=== PATIENT | male | born 1985 | race Caucasian/White ===

== ENCOUNTER 2018-09-18 08:15 | Inpatient (IN) | payer OTHER ==
[2018-09-18 08:32] VITALS: BMI 24.8
--- NOTE | 2018-09-18 08:49 | HP ---
COWS - Scale Resting Pulse: 1= RI 81-100 Sweatin= Chills/Flushing Restless Observation: 0= Sits Still Pupil Size: 2= Moderately Dilated Bone or Joint Aches: 4=Acute Joint/Muscle Pain Runny Nose/ Eye Tearin= Nasal Congestion GI Upset > 30mins: 2= Nausea/Diarrhea Tremor Observation: 0= None Yawning Observation: 0= None Anxiety or Irritability: 2=Irritable/Anxious Goose Flesh Skin: 0=Smooth Skin COWS Score: 13 CIWA Score Nausea/Vomitin Muscle Tremors: None Anxiety: 3 Agitation: 1-Slight > Activity Paroxysmal Sweats: 2 Orientation: 0-Oriented Tacttile Disturbances: 1-Very Mild Itch/Numbness Auditory Disturbances: 2-Mild Harshness/Frighten Visual Disturbances: 2-Mild Sensitivity Headache: 3-Moderate CIWA-Ar Total Score: 17 - Admission Criteria OASAS Guidelines: Admission for Medically Managed Detox: Requires at least one of the followin. CIWA greater than 12 2. Seizures within the past 24 hours 3. Delirium tremens within the past 24 hours 4. Hallucinations within the past 24 hours 5. Acute intervention needed for co occurring medical disorder 6. Acute intervention needed for co occurring psychiatric disorder 7. Severe withdrawal that cannot be handled at a lower level of care (continued vomiting, continued diarrhea, abnormal vital signs) requiring intravenous medication and/or fluids 8. Admission ROS [facility] Allergies/Adverse Reactions: Allergies Allergy/AdvReac Type Severity Reaction Status Date / Time ketorolac [From Toradol] Allergy Verified 09/18/18 11:07 nickel Allergy Verified 09/18/18 11:07 History of Present Illness: pt here requesting detox from opiate and etoh use , reports first age of use 5 years ago , started w/ percocet rx for LBP 2/2 work -related injury , left ankle frx , left knee sprain , left hip frx , casted no surgery ( fall down stairs ) , then started cannabis, then cocaine, crack cocaine, then heroin , then " pretty much anything I can get my hands on " . Heroin : 3 bgs/day ivdu in [place] , legs , needles from friends, needles exchange, re-using needles , + sharing , abscess most recently 1 yr ago right inner thigh and had [facility] & [facility] @ [facility] , ODx 1 age 26 , latest use 1.5 days ago , current symptoms as above. Longest sobriety < 1 year cocaine : 1 -2 gr/day iVDU , latest use 1.5 d ago crystal meth : 1/2 gr / day IVDU methadone : reports illicit use, thinks he took 1/2 bottle of a 50 mg bup - 8 mg sl film 2 days ago tobacco : 1 ppd since age 20 etoh : 1 liter vodka/day , first age of use 17 , heavily since the beginning , current use - " I actually slowed down when I started w/ crystal meth , I was drinking more before " , denies seizures, + blackouts , + tremors if not driking, starts drinking upon awakening , reports irritability , tremors if not drinking , latest use day before yesterday , current symptoms as above . Pt reports he went to er [facility] for right earache , dx w/ ear infection , meds sent to pharmacy he did not cook pickled meat yet , pharmacy phone [phone], called n/a per pt pharmacy opens 10 am, has d/c paperwork indicating otitis externa dx 09/17/18 meds Amoxicillin tid x 7 d , augmentin 876 bid x 10 days , ciprodex , depakote 250 ER qd , Gabapentin 300 tid PMHX : hiv dx 2012 ( rf= [facility] ) [facility] latest there 1 mo ago , reports non- compliance in the last month due to homelessness , depression and substance use PShx : appy age 13 , tonsils childhood , andriy ear tubes Psych : depression , bipolar d/o , reports suicide attempt 18 by taking pills ( percocet, morphine ), 26 ( drug OD heroin , cocaine , liquor) found by family taken to [facility] , completed detox and rehab . 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 The information displayed on this report is compiled from pharmacy submissions to the Department, and accurately reflects the information as submitted by the pharmacies. This report was requested by: Zora De Souza | Reference #: [id number] There are no results for the search terms that you entered. Exam Limitations: Clinical Condition - Ebola screening Have you traveled outside of the country in the last 21 days: No Have you had contact with anyone from an Ebola affected area: No Have you been sick,other than usual withdrawal symptoms: No Do you have a fever: No - Review of Systems Constitutional: See HPI, Loss of Appetite, Other (reports not sleeping for 2 days w/ earache and substance use) EENT: reports: See HPI, Ear Discharge, Ear Pain, Nose Congestion, Other (myopia) Respiratory: reports: Shortness of Breath (reports has anxiety which triggers the sensation of SOB) Cardiac: reports: Chest Tightness (reports anxiety which usually is associated with sensation of chest tightness) GI: reports: See HPI : reports: No Symptoms Reported Musculoskeletal: reports: Muscle Pain, Muscle Weakness Integumentary: reports: See HPI, Rash (andriy earlobes) Endocrine: reports: Other (" they told me I was at one point I never followed up ") Psychiatric: reports: Orientated x3 Patient History - Smoking Cessation Smoking history: Current every day smoker Have you smoked in the past 12 months: Yes Aproximately how many cigarettes per day: 20 Hx Chewing Tobacco Use: No Initiated information on smoking cessation: No - Substances Abused Heroin Route: Injection Frequency: Daily Amount used: 3 bags Age of first use: 23 Date of Last Use: 09/16/18 Crack Route: Inhalation Frequency: Daily Amount used: !5 bags Age of first use: 30 Date of Last Use: 09/15/18 Alcohol Route: Oral Frequency: Daily Amount used: 1 litre vodka, 2 beers ( 22 ounces bottle) Age of first use: 18 Date of Last Use: 09/17/18 Family Disease History - Family Disease History Family Disease History: CA: Mother (d.45 , 2 years ago CA colon ), Other: Father (53 , heart dz ), Mother, Brother (2, A & W , 1 brother w/ seizure d/o ), Sister (1 step-sister ) Admission Physical Exam BHS - Vital Signs Vital Signs: Vital Signs - 24 hr 09/18/18 08:28 Temperature 98.6 F Pulse Rate 91 H Respiratory 18 Rate Blood Pressure 126/89 - Physical General Appearance: Yes: Disheveled, Moderate Distress, Anxious HEENTM: Yes: EOMI, Normocephalic, Normal Voice, Nasal Congestion, Other (ear lobes with edema, erythema, excoriation , purulent fluid right external canal , tender to palpation RIGHT ear) Respiratory: Yes: Chest Non-Tender, Lungs Clear, Normal Breath Sounds Neck: Yes: No masses,lesions,Nodules, Trachea in good position Cardiology: Yes: Regular Rhythm, Regular Rate, S1, S2, Tachycardia Abdominal: Yes: Soft, Tenderness (diffuse, reports nausea and abdominal cramping ) Back: Yes: Normal Inspection Musculoskeletal: Yes: Gait Steady Extremities: Yes: Non-Tender, Tremors, Erythema (left forearm extensor surface proximal 1/3) Neurological: Yes: Motor Strength 5/5, Depressed Affect (tearful at times) Integumentary: Yes: Rash, Track Mason, Other - Diagnostic (1) Opioid dependence Current Visit: Yes Status: Acute Qualifiers: Substance use status: in withdrawal Qualified Code(s): F11.23 - Opioid dependence with withdrawal (2) Alcohol dependence Current Visit: Yes Status: Acute Qualifiers: Substance use status: in withdrawal (3) Amphetamine abuse Current Visit: Yes Status: Acute (4) Cocaine dependence Current Visit: Yes Status: Chronic Qualifiers: Substance use status: uncomplicated Qualified Code(s): F14.20 - Cocaine dependence, uncomplicated (5) Cannabis dependence Current Visit: Yes Status: Chronic (6) Nicotine dependence Current Visit: Yes Status: Chronic Qualifiers: Nicotine product type: cigarettes BHS Breath Alcohol Content Breath Alcohol Content: 0 Urine Drug Screen - Results Drug Screen Negative: No Urine Drug Screen Results: THC-Marijuana, LU-Cocaine, AMP-Amphetamines, MET- Methamphetamine, MTD-Methadone, BUP-Suboxone Inpatient Rehab Admission - Rehab Decision to Admit Inpatient rehab admission?: No
[2018-09-18] MEDS ORDERED: MENTHOL/PHENOL 1 EACH UD MM PRN (09:28)
[2018-09-18] MEDS ORDERED: NICOTINE POLACRILEX 2 MG GUM BUC PRN (09:28)
[2018-09-18] MEDS ORDERED: MAG HYDROX/AL HYDROX/SIMETH 30 ML UNIT-DOSE CUP PO PRN (09:28)
[2018-09-18] MEDS ORDERED: ACETAMINOPHEN 325 MG TABLET (FP) PO PRN ×2 (09:28)
[2018-09-18] MEDS ORDERED: MAGNESIUM HYDROX 2400MG/30ML ORAL SUSPENSION 30 ML CUP PO PRN (09:28)
[2018-09-18] MEDS ORDERED: METHOCARBAMOL 500 MG TABLET PO PRN (09:28)
[2018-09-18] MEDS ORDERED: MELATONIN 5 MG TABLETS PO PRN (09:28)
[2018-09-18] MEDS ORDERED: chlordiazePOXIDE HCL 25 MG CAPSULE PO PRN (09:28)
[2018-09-18] MEDS ORDERED: DICYCLOMINE HCL 10 MG CAPSULE PO PRN (09:28)
[2018-09-18] MEDS ORDERED: MAGNESIUM CITRATE 300 ML BOTTLE PO PRN (09:28)
[2018-09-18] MEDS ORDERED: METHADONE HCL 10 MG TABLET (FOR DETOX USE ONLY) PO ONE (12:35)
[2018-09-18] MEDS ORDERED: AMOXICILLIN 500 MG CAPSULE (FP) PO SCH (14:00)
[2018-09-18] MEDS: chlordiazePOXIDE HCL 25 MG CAPSULE PO SCH ×3 (14:12→22:23)
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
[2018-09-18] MEDS: VARENICLINE TARTRATE 0.5 MG TAB PO SCH ×2 (15:16→22:25)
[2018-09-18] MEDS: PRENATAL VITAMINS W/ FOLIC ACID TABLET (FP) PO SCH (15:16)
[2018-09-18] MEDS: AMOX TR/POT CLAV 875MG/125MG TABLETS (FP) PO SCH (18:05)
[2018-09-18] MEDS ORDERED: QUEtiapine FUMARATE 50 MG TABLET PO SCH (22:00)
[2018-09-18] MEDS ORDERED: THIAMINE HCL 100 MG TABLET (FP) PO SCH (22:00)
[2018-09-19] MEDS: chlordiazePOXIDE HCL 25 MG CAPSULE PO SCH (06:38)
[2018-09-19] MEDS: AMOX TR/POT CLAV 875MG/125MG TABLETS (FP) PO SCH (09:22)
[2018-09-19 09:29] VITALS: BP 112/72; PULSE 96; TEMP 98.2
[2018-09-19] MEDS ORDERED: METHADONE HCL 10 MG TABLET (FOR DETOX USE ONLY) PO ONE (10:00)
--- NOTE | 2018-09-19 10:21 | EKG ---
Test Reason : Blood Pressure : / mmHG Vent. Rate : 082 BPM Atrial Rate : 082 BPM P-R Int : 142 ms QRS Dur : 084 ms QT Int : 366 ms P-R-T Axes : 040 073 056 degrees QTc Int : 427 ms NORMAL SINUS RHYTHM NORMAL ECG NO PREVIOUS ECGS AVAILABLE Confirmed by MALLORIE RYAN MD ([id number]) on 09/19/2018 10:21:00 AM Referred By: Confirmed By:MALLORIE RYAN MD
[2018-09-19] MEDS: VARENICLINE TARTRATE 0.5 MG TAB PO SCH (10:38)
[2018-09-19 10:39] LABS: ALBUMIN 3.2 g/dl (3.4-5.0); ALK PHOS 61 U/L (45-117); ANION GAP 5 MMOL/L (8-16); BILIRUBIN,TOTAL 0.3 mg/dL (0.2-1); BLOOD UREA NITROGEN 13 mg/dL (7-18); CALCIUM 8.9 mg/dL (8.5-10.1); CHLORIDE 102 mmol/L (98-107); CO2 28 mmol/L (21-32); CREATININE 0.6 mg/dL (0.55-1.3); GLUCOSE,RANDOM 110 mg/dL (74-106); HEMATOCRIT 39.2 % (35.4-49); HEMOGLOBIN 13.1 GM/dL (11.7-16.9); MCH 32.2 pg (25.7-33.7); MCHC 33.4 g/dl (32.0-35.9); MEAN CELL VOLUME 96.5 fl (80-96); MEAN PLT VOLUME 8.7 fl (7.5-11.1); PLATELET COUNT 234 K/MM3 (134-434); POTASSIUM 4.3 mmol/L (3.5-5.1); RBC 4.07 M/mm3 (4.00-5.60); RDW 13.4 % (11.9-15.9); SGOT/AST 14 U/L (15-37); SGPT/ALT 12 U/L (13-61); SODIUM 134 mmol/L (136-145); TOT PROT 7.9 g/dl (6.4-8.2); WHITE BLOOD COUNT 8.7 K/mm3 (4.0-10.0)
[2018-09-19] MEDS: PRENATAL VITAMINS W/ FOLIC ACID TABLET (FP) PO SCH (10:40)
[2018-09-19] MEDS ORDERED: chlordiazePOXIDE HCL 25 MG CAPSULE PO SCH (11:00)
--- NOTE | 2018-09-19 19:06 | PN ---
S CIWA - CIWA Score Nausea/Vomitin-No Nausea/No Vomiting Muscle Tremors: None Anxiety: 5 Agitation: 4-Moderately Restless Paroxysmal Sweats: 2 Orientation: 0-Oriented Tacttile Disturbances: 3-Moderate Itch/Numb/Burn Auditory Disturbances: 0-None Visual Disturbances: 2-Mild Sensitivity Headache: 0-None Present CIWA-Ar Total Score: 16 BHS COWS - Scale Resting Pulse: 1= CO 81-100 Sweatin= Chills/Flushing Restless Observation: 1= Difficult to Sit Still Pupil Size: 0= Normal to Room Light Bone or Joint Aches: 2= Severe Diffuse Aches Runny Nose/ Eye Tearin= Runny Nose/Eyes GI Upset > 30mins: 0= None Tremor Observation of Outstretched Hands: 0= None Yawning Observation: 1= 1-2x During Session Anxiety or Irritability: 4=Extreme Anxiety Goose Flesh Skin: 3=Piloerection COWS Score: 15 S Progress Note (SOAP) Subjective: Tremors, Anxious, Agitated, Body Aches. Objective: PATIENT A & O X 3, OBSERVED AMBULATING ON UNIT. IN NO ACUTE DISTRESS. 09/19/18 19:05 Vital Signs Temperature 98.2 F 09/19/18 09:27 Pulse Rate 96 H 09/19/18 09:27 Respiratory Rate 20 09/19/18 09:27 Blood Pressure 112/72 09/19/18 09:27 O2 Sat by Pulse Oximetry (%) Laboratory Tests 09/19/18 09/19/18 09/19/18 06:00 06:00 06:00 WBC 8.7 RBC 4.07 Hgb 13.1 Hct 39.2 MCV 96.5 H MCH 32.2 MCHC 33.4 RDW 13.4 Plt Count 234 MPV 8.7 Sodium 134 L Potassium 4.3 Chloride 102 Carbon Dioxide 28 Anion Gap 5 L BUN 13 Creatinine 0.6 Creat Clearance w eGFR 157.15 POC Glucometer Random Glucose 110 H Calcium 8.9 Total Bilirubin 0.3 AST 14 L ALT 12 L Alkaline Phosphatase 61 Total Protein 7.9 Albumin 3.2 L RPR Titer Nonreactive 09/19/18 06:28 WBC RBC Hgb Hct MCV MCH MCHC RDW Plt Count MPV Sodium Potassium Chloride Carbon Dioxide Anion Gap BUN Creatinine Creat Clearance w eGFR POC Glucometer 96 Random Glucose Calcium Total Bilirubin AST ALT Alkaline Phosphatase Total Protein Albumin RPR Titer LABS NOTED. Assessment: 09/19/18 19:06 WITHDRAWAL SYMPTOMS. Plan: CONTINUE DETOX.
--- NOTE | 2018-09-19 19:12 | DS ---
[facility] Summary Admission Date: 09/18/18 Discharge Date: 09/19/18 - History Present History: Alcohol Dependence, Cannabis Dependence, Cocaine Dependence, Opioid Dependence Additional Comments: DESPITE ATTEMPTS BY MEDICAL / NURSING STAFF TO ADDRESS PATIENT'S CONCERNS / NEEDS, PATIENT DOES NOT WISH TO REMAIN TO COMPLETE DETOX REGIMEN. RISKS OF LEAVING DETOX UNIT AGAINST MEDICAL ADVICE AND PRIOR TO COMPLETION OF DETOX REGIMEN EXPLAINED TO PATIENT. PATIENT ADVISED TO GO IMMEDIATELY TO NEAREST ER SHOULD ANY INTOLERABLE DETOX SYMPTOMS DEVELOP AT ANY TIME. PATIENT QUITE AGITATED AT TIME IN WHICH HE ELECTED TO LEAVE DETOX UNIT AMA, THUS, PRE-DISCHARGE MEDICAL ASSESSMENT UNABLE TO BE DONE. Pertinent Past History: H.I.V., Depression, Bipolar Disorder, Amphetamine Abuse, Nicotine Dependence. - Physical Exam Results Vital Signs: Vital Signs Temperature 98.2 F 09/19/18 09:27 Pulse Rate 96 H 09/19/18 09:27 Respiratory Rate 20 09/19/18 09:27 Blood Pressure 112/72 09/19/18 09:27 O2 Sat by Pulse Oximetry (%) Pertinent Admission Physical Exam Findings: WITHDRAWAL SYMPTOMS. Laboratory Tests 09/19/18 09/19/18 09/19/18 06:00 06:00 06:00 WBC 8.7 RBC 4.07 Hgb 13.1 Hct 39.2 MCV 96.5 H MCH 32.2 MCHC 33.4 RDW 13.4 Plt Count 234 MPV 8.7 Sodium 134 L Potassium 4.3 Chloride 102 Carbon Dioxide 28 Anion Gap 5 L BUN 13 Creatinine 0.6 Creat Clearance w eGFR 157.15 POC Glucometer Random Glucose 110 H Calcium 8.9 Total Bilirubin 0.3 AST 14 L ALT 12 L Alkaline Phosphatase 61 Total Protein 7.9 Albumin 3.2 L RPR Titer Nonreactive 09/19/18 06:28 WBC RBC Hgb Hct MCV MCH MCHC RDW Plt Count MPV Sodium Potassium Chloride Carbon Dioxide Anion Gap BUN Creatinine Creat Clearance w eGFR POC Glucometer 96 Random Glucose Calcium Total Bilirubin AST ALT Alkaline Phosphatase Total Protein Albumin RPR Titer LABS NOTED. - Treatment Hospital Course: Detox Protocol Followed, Detoxed Safely - Medication Discharge Medications: Ambulatory Orders Amoxicillin/Potassium Clav [Amox-Clav 875-125 mg Tablet] 125 mg PO BID 09/18/18 Ciprofloxacin HCl/Dexameth [Ciprodex Otic Suspension] 4 drop BID 09/18/18 Divalproex *ER* [Depakote *ER* -] 250 mg PO DAILY 09/18/18 Elviteg/Cob/Emtri/Tenof Alafen [Genvoya (Non-Formulary)] 1 each PO DAILY Naproxen [Naprosyn] 500 mg PO DAILY 09/18/18 - Diagnosis (1) Alcohol dependence Status: Acute Qualifiers: Substance use status: in withdrawal Complication of substance-induced condition: uncomplicated Qualified Code(s): F10.230 - Alcohol dependence with withdrawal, uncomplicated (2) Amphetamine abuse Status: Acute (3) Opioid dependence Status: Acute Qualifiers: Substance use status: in withdrawal Qualified Code(s): F11.23 - Opioid dependence with withdrawal (4) Cannabis dependence Status: Chronic (5) Cocaine dependence Status: Chronic Qualifiers: Substance use status: uncomplicated Qualified Code(s): F14.20 - Cocaine dependence, uncomplicated (6) Nicotine dependence Status: Chronic Qualifiers: Nicotine product type: cigarettes Substance use status: uncomplicated Qualified Code(s): F17.210 - Nicotine dependence, cigarettes, uncomplicated (7) Substance induced mood disorder Status: Acute (8) Substance-induced sleep disorder Status: Acute - AMA Did Patient Leave Against Medical Advice: Yes (PATIENT DID NOT WISH TO REMAIN TO COMPLETE DETOX REGIMEN.)
[2018-09-20] MEDS ORDERED: METHADONE HCL 10 MG TABLET (FOR DETOX USE ONLY) PO ONE (10:00)
[2018-09-20] MEDS ORDERED: chlordiazePOXIDE HCL 10 MG CAPSULE PO SCH (11:00)
[2018-09-20] MEDS ORDERED: chlordiazePOXIDE HCL 10 MG CAPSULE PO PRN (11:00)
[2018-09-21] MEDS ORDERED: METHADONE HCL 10 MG TABLET (FOR DETOX USE ONLY) PO ONE (10:00)
[2018-09-21] MEDS ORDERED: chlordiazePOXIDE HCL 10 MG CAPSULE PO SCH (11:00)
[2018-09-22] MEDS ORDERED: METHADONE HCL 5 MG TABLET (FOR DETOX USE ONLY) PO ONE (06:00)
== END 2018-09-19 13:15 | disposition left against medical advice (07) | DRG 770 ==
LOC: YASAS 08:15 → Y3N 12:14
PROVIDERS: ADMIT Surgery; ATTEND Surgery
PROC: HZ2ZZZZ Detoxification Services for Substance Abuse Treatment (ICD-10-PCS; principal; 2018-09-18)
DX: F11.23 Opioid dependence with withdrawal (principal); F10.230 Alcohol dependence with withdrawal, uncomplicated; F14.20 Cocaine dependence, uncomplicated; F12.20 Cannabis dependence, uncomplicated; F15.10 Other stimulant abuse, uncomplicated; F31.9 Bipolar disorder, unspecified; F19.24 Other psychoactive substance dependence with psychoactive substance-induced mood disorder; F19.282 Other psychoactive substance dependence with psychoactive substance-induced sleep disorder; Z21 Asymptomatic human immunodeficiency virus [HIV] infection status
CPT/HCPCS: 36415; 80053; 82962; 85027; 86593; 93005; 93010

== ENCOUNTER 2019-03-16 17:21 | Inpatient (IN) | payer OTHER ==
[2019-03-16 18:49] VITALS: BMI 21.4
--- NOTE | 2019-03-16 20:23 | HP ---
COWS - Scale Resting Pulse: 1= RI 81-100 Sweatin=Flushed/Facial Moisture Restless Observation: 3= Extraneous Movement Pupil Size: 2= Moderately Dilated (Pupils = 5 mm) Bone or Joint Aches: 2= Severe Diffuse Aches Runny Nose/ Eye Tearin= Constantly Teary/Runny GI Upset > 30mins: 3= Vomiting/Diarrhea Tremor Observation: 4= Gross Tremor/Twitching Yawning Observation: 0= None Anxiety or Irritability: 2=Irritable/Anxious Goose Flesh Skin: 0=Smooth Skin COWS Score: 23 CIWA Score - Admission Criteria OASAS Guidelines: Admission for Medically Managed Detox: Requires at least one of the followin. CIWA greater than 12 2. Seizures within the past 24 hours 3. Delirium tremens within the past 24 hours 4. Hallucinations within the past 24 hours 5. Acute intervention needed for co occurring medical disorder 6. Acute intervention needed for co occurring psychiatric disorder 7. Severe withdrawal that cannot be handled at a lower level of care (continued vomiting, continued diarrhea, abnormal vital signs) requiring intravenous medication and/or fluids 8. Admission ROS [facility] Chief Complaint: Having severe withdrawal symptoms from heroin Allergies/Adverse Reactions: Allergies Allergy/AdvReac Type Severity Reaction Status Date / Time ketorolac [From Toradol] Allergy Verified 03/16/19 18:33 nickel Allergy Verified 03/16/19 18:33 History of Present Illness: 33 yo presents w/ opioid withdrawal seeking detox. Last in [facility] in 08/2018 and signed out day after admission. Utox: THC/LU/MET/FEN/MOP/MTD/SUB CORRINE: 0.0 Heroin use began at age 18. Currently uses approx 10 bags daily w/ supplemental use of Last use heroin 3 a.m. Denies sharing needles and works. States last took illicit Methadone 30 mg 3 days ago. Last took Suboxone 8 mg stip this a.m. Cocaine use began at age 31. Last use @ 3 am - speedballs and smokes. Marijuanana - use began at age 11/11. Uses daily.Smokes Nicotine use: 1 ppd since age 20 Denies current alcohol use. Denies overdoses or seizures. Last blackout 2 weeks ago. PMHX : HIV +(Not taking meds) MHHx:Depression, Bipolar d/o. Denies thoughts of harming self or others SHx: Homeless; Unemployed: Court date 03/24. Search Terms: Jesús Garrett, 1985 Search Date: 03/16/2019 08:20:40 PM The Drug Utilization Report below displays all of the controlled substance prescriptions, if any, that your patient has filled in the last twelve months. The information displayed on this report is compiled from pharmacy submissions to the Department, and accurately reflects the information as submitted by the pharmacies. This report was requested by: Solange Mcmullen | Reference #: [id number] There are no results for the search terms that you entered. Search Terms: Jesús Garrett, 1985 Search Date: 03/16/2019 08:21:00 PM States Searched: [place], [place], [place], [place], [place], [place], [place] The Drug Utilization Report below displays the controlled substance prescriptions, if any, that were dispensed in the indicated state(s). The information displayed on this report is compiled from requests submitted to other states' PMPs, and accurately reflects the information as returned by them. Blank cerda indicate data not provided by other state. This report was requested by: Solange Mcmullen | Reference #: [id number] There are no results for the search terms that you entered. Exam Limitations: No Limitations - Ebola screening Have you traveled outside of the country in the last 21 days: No (N) Have you had contact with anyone from an Ebola affected area: No Have you been sick,other than usual withdrawal symptoms: No Do you have a fever: No - Review of Systems Constitutional: Chills, Diaphoresis, Changes in sleep (Difficulty falling and staying asleep) EENT: reports: Nose Congestion Respiratory: reports: No Symptoms reported Cardiac: reports: No Symptoms Reported GI: reports: Diarrhea (soft, brownish green x 2 today), Nausea, Vomiting, Indigestion (Heart burn - was on prilosec) : reports: No Symptoms Reported Musculoskeletal: reports: Back Pain (r/t withdrawal), Muscle Pain (r/t withdrawal) Integumentary: reports: No Symptoms Reported Neuro: reports: Headache (Frontal headache - throbbing. "10"), Tremors Endocrine: reports: Increased Thirst Hematology: reports: No Symptoms Reported Psychiatric: reports: Mood/Affect Appropiate, Agitated, Anxious, Depressed ( Denies thoughts of harming self or others), other (Missed date by 2.) Patient History - Patient Medical History Hx Asthma: No Hx Chronic Obstructive Pulmonary Disease (COPD): No Hx Cardiac Disorders: No Hx Hypertension: No Hx Seizures: No Hx Diabetes: No Hx Gastrointestinal Disorders: No Hx Genitourinary Disorders: No Hx Sexually Transmitted Disorders: No Hx Renal Disease (ESRD): No - Patient Surgical History Past Surgical History: Yes Hx Appendectomy: Yes (2010) Other Surgical History: right inguinal hernia at age 2yr, tonsil removed as a child - PPD History Previous Implant?: Yes (Did not stay long enough for interpretation) PPD to be Administered?: Yes - Smoking Cessation Smoking history: Current every day smoker Have you smoked in the past 12 months: Yes Aproximately how many cigarettes per day: 20 Hx Chewing Tobacco Use: No Initiated information on smoking cessation: Yes 'Breaking Loose' booklet given: 03/16/19 - Substance & Tx. History Hx Alcohol Use: Yes Hx Substance Use: Yes Substance Use Type: Alcohol, Cocaine, Heroin, Marijuana, Opiates Hx Substance Use Treatment: Yes (detox, rehab, past MMTP) - Substances abused Crystal meth Substance route: Injection Frequency: Daily Amount used: $120-240 Age of first use: 30 Date of last use: 03/15/19 Cocaine Substance route: Smoking Frequency: Daily Amount used: $100/day Age of first use: 31 Date of last use: 03/15/19 Heroin Substance route: Injection Frequency: Daily Amount used: 10 bags Age of first use: 18 Date of last use: 03/16/19 Admission Physical Exam S - Vital Signs Vital Signs: Vital Signs - 24 hr 03/16/19 18:40 Temperature 98.4 F Pulse Rate 96 H Respiratory 18 Rate Blood Pressure 149/86 - Physical General Appearance: Yes: Moderate Distress, Tremorous, Sweating (Increased facial moisture), Anxious HEENTM: Yes: EOMI, Hearing grossly Normal, Normal ENT Inspection, Normocephalic , Normal Voice, HETAL (Pupils = 5 mm), Nasal Congestion, Rhinorrhea, Other ( tearing/crying) Respiratory: Yes: Lungs Clear (Pulse ox = 97 %), Normal Breath Sounds, No Respiratory Distress Neck: Yes: No masses,lesions,Nodules, Supple Breast: Yes: Other (Enlarged breast tissue, bilateral. Symetrical.) Cardiology: Yes: Regular Rhythm, Regular Rate, S1, S2 Abdominal: Yes: Non Tender, Flat, Soft, Increased Bowel Sounds Genitourinary: Yes: Within Normal Limits Back: Yes: Normal Inspection Musculoskeletal: Yes: full range of Motion, Gait Steady, Joint swelling ((L) ankle area) Extremities: Yes: Normal Capillary Refill, Tremors (Gross tremors) Neurological: Yes: injection wax molder II-XII NML intact, Fully Oriented, Alert, Motor Strength 5/5, Normal Response (for someone in withdrawal) Integumentary: Yes: Normal Color, Warm, Diaphoresis (Increased facial moisture) , Track Mason (Multiplle old and new track msaon. (L) antecubital area and (L) lower leg w/ increased warmth and induration.), Other (Multiple superficial scratches on chest) Lymphatic: Yes: Within Normal Limits - Diagnostic (1) Opioid dependence with withdrawal Current Visit: Yes Status: Acute (2) History of HIV infection Current Visit: No Status: Chronic (3) 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 (4) Cannabis dependence Current Visit: Yes Status: Chronic (5) Cocaine dependence Current Visit: Yes Status: Chronic Qualifiers: Substance use status: uncomplicated Qualified Code(s): F14.20 - Cocaine dependence, uncomplicated (6) Nicotine dependence Current Visit: Yes Status: Chronic Qualifiers: Nicotine product type: cigarettes Substance use status: uncomplicated Qualified Code(s): F17.210 - Nicotine dependence, cigarettes, uncomplicated (7) Cellulitis Current Visit: Yes Status: Acute Qualifiers: Site of cellulitis: extremity Site of cellulitis of extremity: upper extremity Laterality: unspecified laterality Qualified Code(s): L03.119 - Cellulitis of unspecified part of limb Comment: (L) antecubital area, (L) ankle area (8) IVDU (intravenous drug user) Current Visit: Yes Status: Chronic (9) Scratch poppy Current Visit: Yes Status: Chronic Cleared for Admission S - Detox or Rehab [facility] Level of Care: Medically Managed Detox Regimen/Protocol: Methadone Claeared for Rehab Admission: No Breathalyzer - Breathalyzer Breathalyzer: 0 Urine Drug Screen - Test Device Lot number: [id number] Expiration date: 11/21/20 - Control Is test valid?: Yes - Results Drug screen NEGATIVE: No Urine drug screen results: THC-Marijuana, LU-Cocaine, MET-Methamphetamine, FEN- Fentanyl, MOP-Opiates, MTD-Methadone, BUP-Suboxone Inpatient Rehab Admission - Rehab Decision to Admit Inpatient rehab admission?: No
[2019-03-16] MEDS ORDERED: METHADONE HCL 10 MG TABLET (FOR DETOX USE ONLY) PO ONE (21:03)
[2019-03-16] MEDS ORDERED: NICOTINE POLACRILEX 2 MG GUM BUC PRN (21:03)
[2019-03-16] MEDS ORDERED: cloNIDine HCL 0.1 MG TABLET PO PRN (21:03)
[2019-03-16] MEDS ORDERED: ACETAMINOPHEN 325 MG TABLET (FP) PO PRN ×2 (21:03)
[2019-03-16] MEDS ORDERED: MAGNESIUM HYDROX 2400MG/30ML ORAL SUSPENSION 30 ML CUP PO PRN (21:03)
[2019-03-16] MEDS ORDERED: MAGNESIUM CITRATE 300 ML BOTTLE PO PRN (21:03)
[2019-03-16] MEDS ORDERED: MENTHOL/PHENOL 1 EACH UD MM PRN (21:03)
[2019-03-16] MEDS ORDERED: MAG HYDROX/AL HYDROX/SIMETH 30 ML UNIT-DOSE CUP PO PRN (21:03)
[2019-03-16] MEDS ORDERED: TUBERCULIN PPD 5 TU/0.1ML SYRINGE (IN PATIENT USE ONLY) ID ONE (21:08)
[2019-03-16] MEDS: METHOCARBAMOL 500 MG TABLET PO PRN (21:59)
[2019-03-16] MEDS: guaiFENesin 200 MG/10 ML 10 ML UNIT-DOSE CUPS PO PRN (22:45)
[2019-03-16] MEDS: MELATONIN 5 MG TABLETS PO PRN (22:46)
[2019-03-16] MEDS: THIAMINE HCL 100 MG TABLET (FP) PO SCH (22:47)
[2019-03-16] MEDS ORDERED: hydrOXYzine PAMOATE 25 MG CAPSULE (FP) PO ONE (23:00)
[2019-03-16] MEDS: CEPHALEXIN MONOHYDRATE 500 MG CAPSULE (UD) PO SCH (23:13)
[2019-03-17] MEDS: diazePAM 5 MG TABLET PO PRN ×3 (01:18→22:39)
[2019-03-17] MEDS: CEPHALEXIN MONOHYDRATE 500 MG CAPSULE (UD) PO SCH ×4 (06:29→23:05)
--- NOTE | 2019-03-17 09:20 | PN ---
BHS COWS - Scale Resting Pulse: 1= MA 81-100 Sweatin= Chills/Flushing Restless Observation: 0= Sits Still Pupil Size: 1= Pupils >than Normal Bone or Joint Aches: 2= Severe Diffuse Aches Runny Nose/ Eye Tearin= Runny Nose/Eyes GI Upset > 30mins: 2= Nausea/Diarrhea (no diarrhea) Tremor Observation of Outstretched Hands: 2= Slight Tremor Visible Yawning Observation: 2= >3x During Session Anxiety or Irritability: 2=Irritable/Anxious Goose Flesh Skin: 3=Piloerection COWS Score: 18 BHS Progress Note (SOAP) Subjective: resting on bed comfortably ate breakfast limited conversation with staff prefer sleeping on bed today agrees to be examined left arm and leg for soft tissue infection due to IV drug use Objective: 03/17/19 09:24 Vital Signs Temperature 98.3 F 03/17/19 09:20 Pulse Rate 77 03/17/19 09:20 Respiratory Rate 16 03/17/19 09:20 Blood Pressure 125/83 03/17/19 09:20 O2 Sat by Pulse Oximetry (%) 03/17/19 09:24 lab pending Assessment: 03/17/19 09:24 opiate withdrawal sx Plan: continue methadone detox
[2019-03-17] MEDS ORDERED: METHADONE HCL 10 MG TABLET (FOR DETOX USE ONLY) ONE (09:35)
[2019-03-17] MEDS ORDERED: METHADONE HCL 5 MG TABLET (FOR DETOX USE ONLY) ONE (09:36)
[2019-03-17] MEDS ORDERED: BACITRACIN 0.9 GM PACKET TP SCH (10:00)
[2019-03-17] MEDS ORDERED: PRENATAL VITAMINS W/ FOLIC ACID TABLET (FP) PO SCH (10:00)
[2019-03-17] MEDS ORDERED: NICOTINE 21 MG/24 HOURS TOPICAL PATCH TD SCH (10:00)
[2019-03-17] MEDS ORDERED: METHADONE (DETOX) 20 MG, METHADONE (DETOX) 5 MG PO ONE (10:00)
[2019-03-17] MEDS: guaiFENesin 200 MG/10 ML 10 ML UNIT-DOSE CUPS PO PRN (19:20)
[2019-03-17] MEDS: THIAMINE HCL 100 MG TABLET (FP) PO SCH (22:36)
[2019-03-17] MEDS: MELATONIN 5 MG TABLETS PO PRN (22:40)
[2019-03-18] MEDS: CEPHALEXIN MONOHYDRATE 500 MG CAPSULE (UD) PO SCH (06:01)
[2019-03-18] MEDS: diazePAM 5 MG TABLET PO PRN (06:03)
[2019-03-18] MEDS: METHOCARBAMOL 500 MG TABLET PO PRN (06:04)
[2019-03-18 09:24] VITALS: BP 128/72; PULSE 97; TEMP 96.7
[2019-03-18] MEDS ORDERED: METHADONE HCL 10 MG TABLET (FOR DETOX USE ONLY) PO ONE (10:00)
--- NOTE | 2019-03-18 10:58 | PN ---
[facility] Progress Note Note: Psychiatry Attending's note : Patient is increasingly agitated, loud, disruptive and intimidating. Involved in a verbal argument with another peer. Mr Garrett refuses to follow redirections. Refuses to talk to the psychiatrist. History taken from chart. History as follows : 33 y/o transgender male to female admitted for detoxification. MANSOOR issues : heroin, cocaine, cannabis, amphetamines. Antecedent of multiple psychiatric hospitalizations. History of several suicide attempts. Medical co-morbidity : HIV status. Not on medications. In spite of being under the supervision of security staff, the patient remains aggressive toward staff. Started to throw objects at nurses gathered in the nurse's station. Situation has escalated into an emergency. Patient represents a clear and immediate danger to others on the unit. 911 called. EMS services + [place] [employer] responded. Patient is taken to the psychiatric emergency Department at [facility] for evaluation + disposition. Director Of Development contacted [facility] at [phone]. Spoke to warehouse foreman Deborah. Case discussed. ORTHOPEDIC TECH agrees with plan. Patient is escorted via EMS + [place] Police to the psychiatric ED at [facility] for safety. Case discussed with the Multidisciplinary team.
--- NOTE | 2019-03-18 11:01 | PN ---
[facility] Progress Note Note: 33 years old male admitted on 03/16/19 for opiate withdrawal sx management treated with methadone detox regimen patient verbally instigates and irritates peers with sexual contextual argumentation with peers seen by psychiatrist tearful depressive affect and mood patient was able contract for safety later throwing object aiming at person aggressive toward staff and violent tendency case discussed with psychiatrist [facility] mental health evaluation is necessary at this time field underwriter called [facility] a female voice stated that received report from jovanny's psychiatrist clearly stated no to received report from field underwriter no name revealed from [facility] evaluation ordered COWS (PN) - Opiate Withdrawal Resting Pulse: 1= GA 81-100 Sweatin= Chills/Flushing Restless Observation: 1= Difficult to Sit Still Pupil Size: 1= Pupils >than Normal Bone or Joint Aches: 1= Mild Discomfort Runny Nose/ Eye Tearin= Nasal Congestion GI Upset > 30mins: 2= Nausea/Diarrhea (no diarrhea) Tremor Observation of Outstretched Hands: 1= Tremor [place], Not Seen Yawning Observation: 0= None Anxiety or Irritability: 2=Irritable/Anxious Goose Flesh Skin: 3=Piloerection COWS Score: 14
[2019-03-18 11:18] LABS: ALBUMIN 2.6 g/dl (3.4-5.0); BILIRUBIN,TOTAL 0.3 mg/dL (0.2-1); CALCIUM 8.6 mg/dL (8.5-10.1); CREATININE 0.7 mg/dL (0.55-1.3); HEMATOCRIT 37.1 % (35.4-49); HEMOGLOBIN 12.5 GM/dL (11.7-16.9); MCH 30.8 pg (25.7-33.7); MCHC 33.5 g/dl (32.0-35.9); MEAN CELL VOLUME 91.7 fl (80-96); MEAN PLT VOLUME 8.4 fl (7.5-11.1); PLATELET COUNT 202 K/MM3 (134-434); POTASSIUM 3.9 mmol/L (3.5-5.1); RBC 4.05 M/mm3 (4.00-5.60); RDW 14.8 % (11.9-15.9); WHITE BLOOD COUNT 4.1 K/mm3 (4.0-10.0)
[2019-03-18 15:07] LABS: RPR REACTIVE 1:2 (NONREACTIVE)
[2019-03-19] MEDS ORDERED: METHADONE (DETOX) 10 MG, METHADONE (DETOX) 5 MG PO ONE (10:00)
[2019-03-20] MEDS ORDERED: METHADONE HCL 10 MG TABLET (FOR DETOX USE ONLY) PO ONE (10:00)
[2019-03-20 11:40] LABS: TREPONEMA ANTIBODY REACTIVE (NONREACTIVE)
[2019-03-21] MEDS ORDERED: METHADONE HCL 5 MG TABLET (FOR DETOX USE ONLY) PO ONE (06:00)
== END 2019-03-18 11:08 | DRG 773 ==
LOC: YASAS 17:21 → Y3N 21:01
PROVIDERS: ADMIT Surgery; ATTEND Surgery
PROC: HZ2ZZZZ Detoxification Services for Substance Abuse Treatment (ICD-10-PCS; principal; 2019-03-16)
DX: F11.23 Opioid dependence with withdrawal (principal); F14.20 Cocaine dependence, uncomplicated; F12.20 Cannabis dependence, uncomplicated; F15.10 Other stimulant abuse, uncomplicated; F17.210 Nicotine dependence, cigarettes, uncomplicated; F64.8 Other gender identity disorders; F91.8 Other conduct disorders; Z21 Asymptomatic human immunodeficiency virus [HIV] infection status; L03.119 Cellulitis of unspecified part of limb; L90.6 Striae atrophicae; Z87.890 Personal history of sex reassignment; Z88.8 Allergy status to other drugs, medicaments and biological substances; Z91.5 Personal history of self-harm; Z59.0 Homelessness
CPT/HCPCS: 36415; 80053; 85027; 86593; 86780; J0735

== ENCOUNTER 2019-05-13 10:29 | Inpatient (IN) | payer OTHER ==
[2019-05-13 11:05] VITALS: BMI 22.9
--- NOTE | 2019-05-13 11:57 | HP ---
COWS - Scale Resting Pulse: 1= [place] 81-100 Sweatin= Beads of Sweat on Face Restless Observation: 1= Difficult to Sit Still Pupil Size: 1= Pupils >than Normal Bone or Joint Aches: 4=Acute Joint/Muscle Pain Runny Nose/ Eye Tearin= Nasal Congestion GI Upset > 30mins: 2= Nausea/Diarrhea Tremor Observation: 2= Slight Tremor Visible Yawning Observation: 1= 1-2x During Session Anxiety or Irritability: 1=Feels Anxious/Irritable Goose Flesh Skin: 3=Piloerection COWS Score: 20 CIWA Score - Admission Criteria OASAS Guidelines: Admission for Medically Managed Detox: Requires at least one of the followin. CIWA greater than 12 2. Seizures within the past 24 hours 3. Delirium tremens within the past 24 hours 4. Hallucinations within the past 24 hours 5. Acute intervention needed for co occurring medical disorder 6. Acute intervention needed for co occurring psychiatric disorder 7. Severe withdrawal that cannot be handled at a lower level of care (continued vomiting, continued diarrhea, abnormal vital signs) requiring intravenous medication and/or fluids 8. Admitting History and Physical - Admission Chief Complaint: " I want to be admitted to detox for heroin, crystal meth and crack use." History of Present Illness: 33 year old with history of crack use disorder, opioid dependence with withdrawals, and crystal meth use disorder. Patient is using 1 bundle of heroin daily, intravenously,last used yesterday. He overdosed 1 year ago when he also tried to commit suicide. Patient is also using crystal meth $120 per daily, last used yesterday. Patient is using crack 2 gram per day or $100 daily, last used yesterday. Patient is smoking ciggarettes 1ppd daily, last smoked this morning. PMH: HIV Disease Psurg: Tonsillectomy, L Inguinal Herniorhaphy. Patient is living on the streets and is homeless. He's had SRO's in the past but gets kicked out frequently. He had been in a methadone program in the past at 160mg last year in [facility]. He wants to complete detox and rehab and then go to a maintenance program. History Source: Patient Limitations to Obtaining History: No Limitations - Past Medical History Infectious Disease: Yes: HIV - Smoking History Smoking history: Current every day smoker Have you smoked in the past 12 months: Yes Aproximately how many cigarettes per day: 20 - Alcohol/Substance Use Hx Alcohol Use: Yes - Social History Usual Living Arrangement: Yes: Alone Do you think of yourself as: [place], Lesbian or Homosexual ADL: Independent Occupation: unemployed History of Recent Travel: No Admission ROS [facility] Allergies/Adverse Reactions: Allergies Allergy/AdvReac Type Severity Reaction Status Date / Time ketorolac [From Toradol] Allergy Verified 05/13/19 10:52 nickel Allergy Verified 05/13/19 10:52 - Ebola screening Have you traveled outside of the country in the last 21 days: No Have you had contact with anyone from an Ebola affected area: No Have you been sick,other than usual withdrawal symptoms: No Do you have a fever: No - Review of Systems Constitutional: Chills, Diaphoresis, Unintentional Wgt. Loss EENT: reports: No Symptoms Reported Respiratory: reports: No Symptoms reported, SOB with Exertion Cardiac: reports: No Symptoms Reported GI: reports: Nausea, Vomiting : reports: No Symptoms Reported Musculoskeletal: reports: Back Pain, Joint Pain, Muscle Pain Integumentary: reports: No Symptoms Reported Neuro: reports: Headache Endocrine: reports: No Symptoms Reported Hematology: reports: No Symptoms Reported Psychiatric: reports: Anxious Other Systems: Reviewed and Negative Patient History - Patient Medical History Hx Asthma: No Hx Chronic Obstructive Pulmonary Disease (COPD): No Hx Cardiac Disorders: No Hx Hypertension: No Hx Seizures: No Hx Diabetes: No Hx Gastrointestinal Disorders: No Hx Genitourinary Disorders: No Hx Sexually Transmitted Disorders: No Hx Renal Disease (ESRD): No Hx Depression: Yes Hx Suicide Attempt: No Hx Schizophrenia: No - Patient Surgical History Past Surgical History: Yes Hx Neurologic Surgery: No Hx Cataract Extraction: No Hx Cardiac Surgery: No Hx Lung Surgery: No Hx Breast Surgery: No Hx Breast Biopsy: No Hx Abdominal Surgery: No Hx Appendectomy: Yes (2010) Hx Cholecystectomy: No Hx Genitourinary Surgery: No Hx Section: No Hx Orthopedic Surgery: No Other Surgical History: right inguinal hernia at age 2yr, tonsil removed as a child Anesthesia Reaction: No - PPD History Date: 03/18/19 - Smoking Cessation Smoking history: Current every day smoker Have you smoked in the past 12 months: Yes Aproximately how many cigarettes per day: 20 Hx Chewing Tobacco Use: No Initiated information on smoking cessation: Yes 'Breaking Loose' booklet given: 05/13/19 - Substances abused Crystal meth Substance route: Injection Frequency: Daily Amount used: $120-240 Age of first use: 30 Date of last use: 05/13/19 Cocaine Substance route: Smoking Frequency: Daily Amount used: $100/day Age of first use: 31 Date of last use: 05/13/19 Heroin Substance route: Injection Frequency: Daily Amount used: 10 bags Age of first use: 18 Date of last use: 05/13/19 Admission Physical Exam [facility] - Vital Signs Vital Signs: Vital Signs - 24 hr 05/13/19 10:47 Temperature 97.6 F Pulse Rate 92 H Respiratory 17 Rate Blood Pressure 156/86 - Physical General Appearance: Yes: Disheveled, Mild Distress, Tremorous, Irritable, Sweating, Anxious HEENTM: Yes: Within Normal Limits, EOMI, Hearing grossly Normal, Normal ENT Inspection, Normocephalic, Normal Voice, HETAL, Pharynx Normal, Tm's normal Respiratory: Yes: Chest Non-Tender, Lungs Clear, Normal Breath Sounds, No Respiratory Distress, No Accessory Muscle Use Neck: Yes: No masses,lesions,Nodules, Supple, Trachea in good position Breast: Yes: Within Normal Limits Abdominal: Yes: Soft, Increased Bowel Sounds. No: Guarding, Rebound Genitourinary: Yes: Within Normal Limits Back: Yes: Normal Inspection Musculoskeletal: Yes: full range of Motion, Gait Steady, Pelvis Stable Extremities: Yes: Normal Capillary Refill, Normal Inspection, Normal Range of Motion, Non-Tender Neurological: Yes: music promoter II-XII NML intact, Fully Oriented, Alert, Motor Strength 5/5, Normal Mood/Affect, Normal Response Integumentary: Yes: Normal Color, Warm Lymphatic: Yes: Within Normal Limits - Diagnostic (1) Opioid dependence with withdrawal Current Visit: No Status: Acute (2) History of HIV infection Current Visit: No Status: Chronic (3) IVDU (intravenous drug user) Current Visit: No Status: Chronic (4) 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 (5) Cannabis dependence Current Visit: Yes Status: Chronic Cleared for Admission [facility] - Detox or Rehab [facility] Level of Care: Medically Managed Detox Regimen/Protocol: Methadone Screened but not Admitted - Documentation of Visit Screened but not Admitted: No Breathalyzer - Breathalyzer Breathalyzer: 0 Urine Drug Screen - Test Device Lot number: [id number] Expiration date: 01/21/21 - Control Is test valid?: Yes - Results Drug screen NEGATIVE: No Urine drug screen results: THC-Marijuana, LU-Cocaine, MET-Methamphetamine, AMP- Amphetamines, FEN-Fentanyl, MOP-Opiates, MTD-Methadone Inpatient Rehab Admission - Rehab Decision to Admit Inpatient rehab admission?: No
[2019-05-13] MEDS ORDERED: BISMUTH SUBSALICYLATE 262 MG/15 ML BTL PO PRN (12:03)
[2019-05-13] MEDS ORDERED: IBUPROFEN 400 MG TABLET (FP) PO PRN (12:03)
[2019-05-13] MEDS ORDERED: MAGNESIUM CITRATE 300 ML BOTTLE PO PRN (12:03)
[2019-05-13] MEDS ORDERED: MELATONIN 5 MG TABLETS PO PRN (12:03)
[2019-05-13] MEDS ORDERED: MAGNESIUM HYDROX 2400MG/30ML ORAL SUSPENSION 30 ML CUP PO PRN (12:03)
[2019-05-13] MEDS ORDERED: cloNIDine HCL 0.1 MG TABLET PO PRN (12:03)
[2019-05-13] MEDS ORDERED: ACETAMINOPHEN 325 MG TABLET (FP) PO PRN ×2 (12:03)
[2019-05-13] MEDS ORDERED: MENTHOL/PHENOL 1 EACH UD MM PRN (12:03)
[2019-05-13] MEDS ORDERED: MAG HYDROX/AL HYDROX/SIMETH 30 ML UNIT-DOSE CUP PO PRN (12:03)
[2019-05-13] MEDS ORDERED: METHOCARBAMOL 500 MG TABLET PO PRN (12:03)
[2019-05-13] MEDS ORDERED: METHADONE HCL 10 MG TABLET (FOR DETOX USE ONLY) PO ONE (12:30)
[2019-05-13 21:03] LABS: HEMATOCRIT 38.5 % (35.4-49); HEMOGLOBIN 12.9 GM/dL (11.7-16.9); MCH 31.1 pg (25.7-33.7); MCHC 33.6 g/dl (32.0-35.9); MEAN CELL VOLUME 92.4 fl (80-96); MEAN PLT VOLUME 8.3 fl (7.5-11.1); PLATELET COUNT 242 K/MM3 (134-434); RBC 4.17 M/mm3 (4.00-5.60); RDW 14.5 % (11.9-15.9); WHITE BLOOD COUNT 5.3 K/mm3 (4.0-10.0)
[2019-05-13 21:43] LABS: ALBUMIN 3.2 g/dl (3.4-5.0); BILIRUBIN,TOTAL 0.3 mg/dL (0.2-1); BLOOD UREA NITROGEN 12.7 mg/dL (7-18); CALCIUM 8.5 mg/dL (8.5-10.1); CREATININE 0.8 mg/dL (0.55-1.3); POTASSIUM 4.2 mmol/L (3.5-5.1); TOT PROT 8.1 g/dl (6.4-8.2)
[2019-05-13] MEDS ORDERED: THIAMINE HCL 100 MG TABLET (FP) PO SCH (22:00)
[2019-05-13] MEDS: hydrOXYzine PAMOATE 25 MG CAPSULE (FP) PO PRN (22:11)
[2019-05-14] MEDS: hydrOXYzine PAMOATE 25 MG CAPSULE (FP) PO PRN (05:54)
[2019-05-14 06:15] VITALS: BP 129/78; PULSE 70; TEMP 97.6
[2019-05-14] MEDS ORDERED: METHADONE HCL 10 MG TABLET (FOR DETOX USE ONLY) ONE (09:44)
[2019-05-14] MEDS ORDERED: METHADONE HCL 5 MG TABLET (FOR DETOX USE ONLY) ONE (09:44)
--- NOTE | 2019-05-14 09:52 | PN ---
BHS COWS - Scale Resting Pulse: 0= ND 80 or Below Sweatin= No chills or Flushing Restless Observation: 1= Difficult to Sit Still Pupil Size: 0= Normal to Room Light Bone or Joint Aches: 1= Mild Discomfort Runny Nose/ Eye Tearin= Nasal Congestion GI Upset > 30mins: 1= Stomach Cramp Tremor Observation of Outstretched Hands: 1= Tremor [place], Not Seen Yawning Observation: 0= None Anxiety or Irritability: 2=Irritable/Anxious Goose Flesh Skin: 0=Smooth Skin COWS Score: 7 BHS Progress Note (SOAP) Subjective: alert,irritable,anxious,interrupted sleep Objective: 05/14/19 09:51 Vital Signs Temperature 97.6 F 05/14/19 06:14 Pulse Rate 70 05/14/19 06:14 Respiratory Rate 18 05/14/19 06:14 Blood Pressure 129/78 05/14/19 06:14 O2 Sat by Pulse Oximetry (%) 05/14/19 09:51 Laboratory Last Values WBC 5.3 K/mm3 (4.0-10.0) 05/13/19 12:30 RBC 4.17 M/mm3 (4.00-5.60) 05/13/19 12:30 Hgb 12.9 GM/dL (11.7-16.9) 05/13/19 12:30 Hct 38.5 % (35.4-49) 05/13/19 12:30 MCV 92.4 fl (80-96) 05/13/19 12:30 MCH 31.1 pg (25.7-33.7) 05/13/19 12:30 MCHC 33.6 g/dl (32.0-35.9) 05/13/19 12:30 RDW 14.5 % (11.9-15.9) 05/13/19 12:30 Plt Count 242 K/MM3 (134-434) 05/13/19 12:30 MPV 8.3 fl (7.5-11.1) 05/13/19 12:30 Sodium 139 mmol/L (136-145) 05/13/19 12:30 Potassium 4.2 mmol/L (3.5-5.1) 05/13/19 12:30 Chloride 106 mmol/L (98-107) 05/13/19 12:30 Carbon Dioxide 27 mmol/L (21-32) 05/13/19 12:30 Anion Gap 6 MMOL/L (8-16) L 05/13/19 12:30 BUN 12.7 mg/dL (7-18) 05/13/19 12:30 Creatinine 0.8 mg/dL (0.55-1.3) 05/13/19 12:30 Est GFR (CKD-EPI)AfAm 136.99 05/13/19 12:30 Est GFR (CKD-EPI)NonAf 118.20 05/13/19 12:30 Random Glucose 125 mg/dL (74-106) H 05/13/19 12:30 Calcium 8.5 mg/dL (8.5-10.1) 05/13/19 12:30 Total Bilirubin 0.3 mg/dL (0.2-1) 05/13/19 12:30 AST 39 U/L (15-37) H 05/13/19 12:30 ALT 48 U/L (13-61) 05/13/19 12:30 Alkaline Phosphatase 80 U/L (45-117) 05/13/19 12:30 Total Protein 8.1 g/dl (6.4-8.2) 05/13/19 12:30 Albumin 3.2 g/dl (3.4-5.0) L 05/13/19 12:30 Assessment: 05/14/19 09:52 withdrawal symptom Plan: continue detox methadone regimen
[2019-05-14] MEDS ORDERED: NICOTINE 14 MG/24 HOURS TOPICAL PATCH TD SCH (10:00)
[2019-05-14] MEDS ORDERED: METHADONE (DETOX) 20 MG, METHADONE (DETOX) 5 MG PO ONE (10:00)
[2019-05-14] MEDS ORDERED: PRENATAL VITAMINS W/ FOLIC ACID TABLET (FP) PO SCH (10:00)
--- NOTE | 2019-05-14 10:04 | PN ---
[facility] Progress Note Note: patient did not want to continue treatment,demanding to leave the facility right now, disrupting the unit,with all the fool language,securities,nursing supervisor firearms, Ashly Pride,and counselor present, nursing ,agreed and concurred that patient leave ama,escorted off the unit by securities
--- NOTE | 2019-05-14 10:07 | DS ---
[facility] Detox Discharge Summary Admission Date: 05/13/19 Discharge Date: 05/14/19 - History Present History: Cocaine Dependence, Opioid Dependence Additional Comments: patient left ama Pertinent Past History: ivdu hiv amphetamine abused - Physical Exam Results Vital Signs: Vital Signs Temperature 97.6 F 05/14/19 06:14 Pulse Rate 70 05/14/19 06:14 Respiratory Rate 18 05/14/19 06:14 Blood Pressure 129/78 05/14/19 06:14 O2 Sat by Pulse Oximetry (%) Pertinent Admission Physical Exam Findings: Vital Signs Temperature 97.6 F 05/14/19 06:14 Pulse Rate 70 05/14/19 06:14 Respiratory Rate 18 05/14/19 06:14 Blood Pressure 129/78 05/14/19 06:14 O2 Sat by Pulse Oximetry (%) Laboratory Last Values WBC 5.3 K/mm3 (4.0-10.0) 05/13/19 12:30 RBC 4.17 M/mm3 (4.00-5.60) 05/13/19 12:30 Hgb 12.9 GM/dL (11.7-16.9) 05/13/19 12:30 Hct 38.5 % (35.4-49) 05/13/19 12:30 MCV 92.4 fl (80-96) 05/13/19 12:30 MCH 31.1 pg (25.7-33.7) 05/13/19 12:30 MCHC 33.6 g/dl (32.0-35.9) 05/13/19 12:30 RDW 14.5 % (11.9-15.9) 05/13/19 12:30 Plt Count 242 K/MM3 (134-434) 05/13/19 12:30 MPV 8.3 fl (7.5-11.1) 05/13/19 12:30 Sodium 139 mmol/L (136-145) 05/13/19 12:30 Potassium 4.2 mmol/L (3.5-5.1) 05/13/19 12:30 Chloride 106 mmol/L (98-107) 05/13/19 12:30 Carbon Dioxide 27 mmol/L (21-32) 05/13/19 12:30 Anion Gap 6 MMOL/L (8-16) L 05/13/19 12:30 BUN 12.7 mg/dL (7-18) 05/13/19 12:30 Creatinine 0.8 mg/dL (0.55-1.3) 05/13/19 12:30 Est GFR (CKD-EPI)AfAm 136.99 05/13/19 12:30 Est GFR (CKD-EPI)NonAf 118.20 05/13/19 12:30 Random Glucose 125 mg/dL (74-106) H 05/13/19 12:30 Calcium 8.5 mg/dL (8.5-10.1) 05/13/19 12:30 Total Bilirubin 0.3 mg/dL (0.2-1) 05/13/19 12:30 AST 39 U/L (15-37) H 05/13/19 12:30 ALT 48 U/L (13-61) 05/13/19 12:30 Alkaline Phosphatase 80 U/L (45-117) 05/13/19 12:30 Total Protein 8.1 g/dl (6.4-8.2) 05/13/19 12:30 Albumin 3.2 g/dl (3.4-5.0) L 05/13/19 12:30 - Medication Discharge Medications: Ambulatory Orders NK [No Known Home Medication] 03/16/19 - Diagnosis (1) 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 (2) Opioid dependence with withdrawal Current Visit: No Status: Acute (3) Cocaine dependence Current Visit: No Status: Chronic Qualifiers: Substance use status: uncomplicated Qualified Code(s): F14.20 - Cocaine dependence, uncomplicated (4) History of HIV infection Current Visit: No Status: Chronic (5) IVDU (intravenous drug user) Current Visit: No Status: Chronic (6) Nicotine dependence Current Visit: No Status: Chronic Qualifiers: Nicotine product type: cigarettes Substance use status: uncomplicated Qualified Code(s): F17.210 - Nicotine dependence, cigarettes, uncomplicated - AMA Did Patient Leave Against Medical Advice: Yes
[2019-05-14 14:28] LABS: RPR REACTIVE 1:2 (NONREACTIVE); TREPONEMA ANTIBODY PREVIOUSLY REACTIVE (NONREACTIVE)
[2019-05-15] MEDS ORDERED: METHADONE HCL 10 MG TABLET (FOR DETOX USE ONLY) PO ONE (10:00)
[2019-05-16] MEDS ORDERED: METHADONE (DETOX) 10 MG, METHADONE (DETOX) 5 MG PO ONE (10:00)
[2019-05-17] MEDS ORDERED: METHADONE HCL 10 MG TABLET (FOR DETOX USE ONLY) PO ONE (10:00)
[2019-05-18] MEDS ORDERED: METHADONE HCL 5 MG TABLET (FOR DETOX USE ONLY) PO ONE (06:00)
== END 2019-05-14 09:50 | disposition left against medical advice (07) | DRG 770 ==
LOC: YASAS 10:29 → Y6N 12:22
PROVIDERS: ADMIT Allergy & Immunology; ATTEND Allergy & Immunology
PROC: HZ2ZZZZ Detoxification Services for Substance Abuse Treatment (ICD-10-PCS; principal; 2019-05-13)
DX: F11.23 Opioid dependence with withdrawal (principal); F14.20 Cocaine dependence, uncomplicated; F12.20 Cannabis dependence, uncomplicated; F15.10 Other stimulant abuse, uncomplicated; F17.210 Nicotine dependence, cigarettes, uncomplicated; Z21 Asymptomatic human immunodeficiency virus [HIV] infection status; Z88.8 Allergy status to other drugs, medicaments and biological substances; Z91.048 Other nonmedicinal substance allergy status
CPT/HCPCS: 36415; 80053; 85027; 86593; 86780; J0735